=== PATIENT | male | born 1965 | race Caucasian/White ===

== ENCOUNTER 2017-04-06 15:15 | Emergency (ER) | payer OTHER ==
[~2017-04-06] VITALS: Ht 167.6 cm; Wt 90.5 kg
[~2017-04-06 15:15] MED LIST: NAPR-260 PO; TRAM50TA2 PO
[2017-04-06 15:22] VITALS: Ht 167.6 cm; Wt 90.5 kg
[2017-04-06] MEDS ORDERED: KETOROLAC 30 MG INJ IM STA (15:50)
--- NOTE | 2017-04-06 16:20 | RADRPT ---
PROCEDURE: US Lower extremity Venous. CLINICAL INDICATION: Left leg edema, pain TECHNIQUE: Multiple sonographic images of the left lower extremity deep venous system was obtained utilizing grayscale, color-flow, compressive sonography and doppler imaging with augmentation. The images were reviewed on a PACS workstation. COMPARISON: 06/29/2016 FINDINGS: There is normal compressibility and flow within the left common femoral, femoral, posterior tibial, peroneal and popliteal veins. RPTAT: AA IMPRESSION: No sonographic evidence for deep venous thrombosis. .Sg Higgins MD, MD Date Time Electronically viewed and signed by .Sg Higgins MD, on 04/06/2017 16:20 .S/
--- NOTE | 2017-04-06 17:30 | RADRPT ---
PROCEDURE: XR Ankle. CLINICAL INDICATION: 51-year-old male. Left ankle pain. TECHNIQUE: Three views of the left ankle. COMPARISON: Left leg venous Doppler from earlier the same day FINDINGS: There is orthopedic hardware transfixing a comminuted fracture of the distal tibia and a fracture of the distal fibula. There is a side plate transfixed with screws transfixing the tibial fracture as well as the bony screws not crossing the side plate. 2 of the screws are fractured including the f ifth from the top and the fourth from the bottom. The comminuted fracture remains visualized withou t healing. Left fibular shaft hardware is intact. There are 2 yajaira in the soft tissues anterior to the fractured fibula and not in the skin. Normal alignment of the ankle mortise. Possible mild widening of the distal tibiofibular syndesmosis. There is moderate soft tissue swelling at the ank le and the lower leg greatest over the medial malleolus. Negative for abnormal soft tissue gas. IMPRESSION: Status post ORIF of comminuted fractures of the distal tibia and fibula. 2 screws transfixing the t ibial side plate are fractured. Bony fractures are not yet healed. There are soft tissues yajaira a nterior to the fibular fracture that are not in the skin. Recommend correlation with the surgical re cord. Moderate soft tissue swelling. Correlate clinically for signs of infection.. RPTAT: HCTS Physician Rusty Date Time Electronically viewed and signed by Physician Rusty on 04/06/2017 17:30 /
[2017-04-06] MEDS ORDERED: HYDR-906 PO (17:51)
[2017-04-06] MEDS ORDERED: IBUP-1542 PO (17:52)
--- NOTE | 2017-04-06 18:05 | ERD ---
ER Documentation Chief Complaint Date/Time DATE: 04/06/17 TIME: 17:52 Chief Complaint Complains of left foot pain x 3 days HPI Patient is a 51-year-old male who presents with left foot and ankle pain 1 year. Patient states over the last 3 days his pain and swelling has become significantly worse. Patient denies any falls or trauma. Patient states in January 2016 he had an ORIF due to left ankle fracture he sustained after falling off the roof. Patient has been followed by Dr. Weinberg. Patient states he saw this physician 1 week ago. Patient is scheduled to have revision of his previous surgical repair given that the screws have broken. Patient denies any fever, chills, nausea, vomiting, CP, SOB, back pain, or LOC. Patient is ambulating with crutches. ROS All systems reviewed and are negative except as per history of present illness. Medications Home Meds Active Scripts Ibuprofen* (Motrin*) 600 Mg Tab, 600 MG PO Q6, #30 TAB Prov:PENNY MITTAL PA-C 04/06/17 Hydrocodone/Acetaminophen ([place] 5-325 Tablet) 1 Each Tablet, 1 TAB PO Q6H Y for PAIN, #7 TAB Prov:PENNY MITTAL PA-C 04/06/17 Naproxen* (Naprosyn*) 500 Mg Tablet, 500 MG PO BID Y for PAIN AND/OR INFLAMMATION, #30 TAB Prov:RINA ABAD PA-C 06/29/16 Tramadol HCl (Tramadol HCl) 50 Mg Tablet, 50 MG PO Q4 Y for PAIN, #20 TAB Prov:RINA ABAD PA-C 06/29/16 Allergies Allergies: Coded Allergies: No Known Allergy (Unverified , 02/13/14) PMhx/Soc History of Surgery: Yes (back surgery, left low leg surgery) Anesthesia Reaction: No Hx Neurological Disorder: No Hx Respiratory Disorders: No Hx Cardiac Disorders: No Hx Psychiatric Problems: No Hx Miscellaneous Medical Probl: Yes (back problem) Hx Alcohol Use: No Hx Substance Use: No Hx Tobacco Use: No Physical Exam Vitals Vital Signs Date Time Temp Pulse Resp B/P Pulse Ox O2 Delivery O2 Flow Rate FiO2 04/06/17 15:22 98.3 89 20 126/63 95 Physical Exam GENERAL: Well-developed, well-nourished male. Appears in no acute distress. HEAD: Normocephalic, atraumatic. EYES: Pupils are equally reactive bilaterally. EOMs grossly intact. No conjunctival erythema. ENT: Moist mucous membranes. No uvula deviation. No kissing tonsils. NECK: Supple. No lymphadenopathy or thyromegaly. No meningismus. LUNG: Clear to auscultation bilaterally. No rhonchi, wheezing, rales or coarse breath sounds. HEART: Regular rate and rhythm. No murmurs, rubs or gallops. Extremities: Equal pulses bilaterally. No peripheral clubbing, cyanosis or edema. NEUROLOGIC: Alert and oriented. Moving all four extremities. 5/5 strength in all extremities. Normal speech. Steady gait. SKIN: Normal color. Warm and dry. No rashes or lesions. LEFT LE: Previous surgical scars noted. No warmth or erythema. +Swelling to ankle and foot. Skin intact. Decreased ROM secondary to swelling. Tender to palpation of lateral ankle.. Sensation intact to light touch. Neurovascularly intact. (Able to plantarflex, dorsiflex, lisa foot, invert foot, raise big toe. ) 2+ DP and DT pulses. Results 24 hrs Current Medications Medications (Trade) Dose Ordered Sig/Dick Route PRN Reason Start Time Stop Time Status Last Admin Dose Admin Ketorolac Tromethamine (Toradol) 30 mg ONCE STAT IM 04/06/17 15:50 04/06/17 15:52 DC 04/06/17 16:02 Procedures/MDM ED COURSE: The patient was stable throughout ED course. I kept the patient and/or family informed of laboratory and diagnostic imaging results throughout the ED course. DIAGNOSTIC IMAGING: Read by radiologist. Patient: CORRY LUNA : 1965 Age: 51 Sex: M MR #: [id number] DOS: 04/06/17 1550 Ordering MD: PENNY MITTAL PA-C Location: [facility] Room/Bed: PROCEDURE: XR Ankle. CLINICAL INDICATION: 51-year-old male. Left ankle pain. TECHNIQUE: Three views of the left ankle. COMPARISON: Left leg venous Doppler from earlier the same day FINDINGS: There is orthopedic hardware transfixing a comminuted fracture of the distal tibia and a fracture of the distal fibula. There is a side plate transfixed with screws transfixing the tibial fracture as well as the bony screws not crossing the side plate. 2 of the screws are fractured including the fifth from the top and the fourth from the bottom. The comminuted fracture remains visualized without healing. Left fibular shaft hardware is intact. There are 2 yajaira in the soft tissues anterior to the fractured fibula and not in the skin. Normal alignment of the ankle mortise. Possible mild widening of the distal tibiofibular syndesmosis. There is moderate soft tissue swelling at the ankle and the lower leg greatest over the medial malleolus. Negative for abnormal soft tissue gas. IMPRESSION: Status post ORIF of comminuted fractures of the distal tibia and fibula. 2 screws transfixing the tibial side plate are fractured. Bony fractures are not yet healed. There are soft tissues yajaira anterior to the fibular fracture that are not in the skin. Recommend correlation with the surgical record. Moderate soft tissue swelling. Correlate clinically for signs of infection.. RPTAT: HCTS Physician Rusty Date Time Electronically viewed and signed by Physician Rusty on 04/06/2017 17: 30 CS/ CC: PENNY MITTAL PA-C Patient: CORRY LUNA : 1965 Age: 51 Sex: M MR #: [id number] DOS: 04/06/17 1550 Ordering MD: PENNY MITTAL PA-C Location: [facility] Room/Bed: PROCEDURE: US Lower extremity Venous. CLINICAL INDICATION: Left leg edema, pain TECHNIQUE: Multiple sonographic images of the left lower extremity deep venous system was obtained utilizing grayscale, color-flow, compressive sonography and doppler imaging with augmentation. The images were reviewed on a PACS workstation. COMPARISON: 06/29/2016 FINDINGS: There is normal compressibility and flow within the left common femoral, femoral , posterior tibial, peroneal and popliteal veins. RPTAT: AA IMPRESSION: No sonographic evidence for deep venous thrombosis. .Sg Higgins MD, Date Time Electronically viewed and signed by .Sg Higgins MD, MD on 04/06/2017 16: 20 .S/ PROCEDURES: None. MEDICATIONS GIVEN: Toradol IM Patient tolerated medication well with no adverse reactions. Patient reported improvement in pain. MEDICAL DECISION MAKING: This is a 51 year old s/p L ankle ORIF who presents with ongoing L ankle and foot pain and swelling x 1 year. Patient report needing surgical revision. Vital signs were reviewed. Patient was afebrile. Status post ORIF of comminuted fractures of the distal tibia and fibula. 2 screws transfixing the tibial side plate are fractured. Bony fractures are not yet healed. There are soft tissues yajaira anterior to the fibular fracture that are not in the skin. Recommend correlation with the surgical record. Moderate soft tissue swelling. Correlate clinically for signs of infection. Doppler US was negative for DVT. Given these findings, the patients presentation is most consistent with L ankle pain secondary to poor fracture healing. I have a much lower clinical concern for new ankle dislocation, new ankle fracture, tibia fracture, fibula fracture, foot fracture, osteomyelitis, septic joint, gout, osteoarthritis, DVT, compartment syndrome. At this time, unable to rule out any tendon and ligament injuries. Patient advised to follow up with his orthopedic surgery for revision surgery. PRESCRIPTIONS: Ibuprofen DISCHARGE: At this time, patient is stable for discharge and outpatient management. A copy of all imaging studies given to the patient. RICE therapy and ROM exercises were advised to avoid stiffness. I have instructed the patient to follow-up with his/her primary care physician in 1-2 days. I have discussed with the patient the possibility of needing to see an pacs specialist for further workup and imaging if the pain persists. I have instructed the patient to promptly return to the ER for any new or worsening symptoms including increased pain, swelling, redness, warmth or fever. The patient and/or family expressed understanding of and agreement with this plan. All questions were answered. Home care instructions were provided. Departure Diagnosis: Primary Impression: Ankle pain, left Chronicity: chronic Qualified Code: M25.572 - Chronic pain of left ankle Condition: Stable Patient Instructions: Treating Ankle Fractures Referrals: [facility] YOU HAVE RECEIVED A MEDICAL SCREENING EXAM AND THE RESULTS INDICATE THAT YOU DO NOT HAVE A CONDITION THAT REQUIRES URGENT TREATMENT IN THE EMERGENCY DEPARTMENT. FURTHER EVALUATION AND TREATMENT OF YOUR CONDITION CAN WAIT UNTIL YOU ARE SEEN IN YOUR DOCTORS OFFICE WITHIN THE NEXT 1-2 DAYS. IT IS YOUR RESPONSIBILITY TO MAKE AN APPOINTMENT FOR FOLOW-UP CARE. IF YOU HAVE A PRIMARY DOCTOR --you should call your primary doctor and schedule an appointment IF YOU DO NOT HAVE A PRIMARY DOCTOR YOU CAN CALL OUR PHYSICIAN REFERRAL HOTLINE AT IF YOU CAN NOT AFFORD TO SEE A PHYSICIAN YOU CAN CHOSE FROM THE FOLLOWING [facility] [address] [facility]. [facility] [address] [facility] [address] [facility] [facility] [address] [facility] [address] [facility]. [facility] [address] [facility]. [facility] YOU HAVE RECEIVED A MEDICAL SCREENING EXAM AND THE RESULTS INDICATE THAT YOU DO NOT HAVE A CONDITION THAT REQUIRES URGENT TREATMENT IN THE EMERGENCY DEPARTMENT. FURTHER EVALUATION AND TREATMENT OF YOUR CONDITION CAN WAIT UNTIL YOU ARE SEEN IN YOUR DOCTORS OFFICE WITHIN THE NEXT 1-2 DAYS. IT IS YOUR RESPONSIBILITY TO MAKE AN APPOINTMENT FOR FOLOW-UP CARE. IF YOU HAVE A PRIMARY DOCTOR --you should call your primary doctor and schedule and appointment IF YOU DO NOT HAVE A PRIMARY DOCTOR YOU CAN CALL OUR PHYSICIAN REFERRAL HOTLINE AT . IF YOU CAN NOT AFFORD TO SEE A PHYSICIAN YOU CAN CHOSE FROM THE FOLLOWING [facility] INSTITUTIONS: [facility] [address] [place] [address] [facility] [address] [place] [address] [facility] [address] [place] [address] [facility] Hours: Mon-Fri 9:00 AM - 5:00 PM Additional Instructions: Call your primary care doctor TOMORROW for an appointment during the next 1-2 days.See the doctor sooner or return here if your condition worsens before your appointment time. Follow-up with your specialist Dr. Weinberg for revision of previous surgical repair. PENNY MITTAL PA-C Apr 06, 2017 18:04
== END 2017-04-06 17:57 | disposition home or self-care (01) ==
LOC: FTE 15:15
DX: M25.572 Pain in left ankle and joints of left foot (principal)
CPT/HCPCS: 73610; 93971; 96372; 99285; J1885

== ENCOUNTER 2018-04-24 16:30 | Emergency (ER) | END 2018-04-24 20:47 | disposition home or self-care (01) ==